=== PATIENT | male | born 1965 | race Caucasian/White ===

== ENCOUNTER 2016-03-30 09:41 | Emergency (ER) | payer OTHER ==
[~2016-03-30] VITALS: Wt 83.0 kg
[~2016-03-30 09:41] MED LIST: OMEP40CA6 PO; ZANTAC
[2016-03-30] MEDS ORDERED: ONDANSETRON 4 MG INJ IV STA (10:53)
[2016-03-30] MEDS ORDERED: SOD CHLORIDE 0.9% 1,000 ML IV STA (10:53)
[2016-03-30] MEDS ORDERED: PANT20TA3 PO (10:54)
[2016-03-30] MEDS ORDERED: GABA300C16 PO (10:55)
[2016-03-30] MEDS ORDERED: BUPR-187 PO (10:55)
[2016-03-30] MEDS ORDERED: DICYCLOMINE 20 MG INJ IM ONE (11:00)
[2016-03-30] MEDS ORDERED: OMEP20CA16 PO (11:26)
[2016-03-30] MEDS ORDERED: IMO2 PO (11:26)
[2016-03-30] MEDS ORDERED: RANI300T PO (11:28)
[2016-03-30] MEDS ORDERED: DICY10CA60 PO ×2 (11:28→12:03)
--- NOTE | 2016-03-30 11:32 | RADRPT ---
PROCEDURE: CT Abdomen and Pelvis without contrast. CLINICAL INDICATION: Abdominal pain TECHNIQUE: CT scan of the abdomen and pelvis was performed on a multidetector high-resolution CT s canner without intravenous contrast. Coronal and sagittal reformatted images were obtained from the axial source images. Images were reviewed on a high-resolution PACS workstation. The total exam CTD I equals 13mGy and the total exam DLP equals 788mGy-cm. COMPARISON: None. FINDINGS: Evaluation of the solid organs is limited given the lack of intravenous contrast administration. The lung bases are clear. The liver, pancreas, spleen, and adrenals are grossly unremarkable. No focal pericholecystic inflammatory changes. No hydronephrosis. No renal or ureteral stone. No bowel obstruction. Normal-caliber appendix. Mild diffuse colonic wall thickening with mural str atification of the bowel wall. No rim enhancing fluid collection. No significant retroperitoneal lymphadenopathy, ascites or evidence of pneumoperitoneum. IMPRESSION: Mild diffuse colonic wall thickening with mural stratification of the bowel wall is nonspecific but can be seen with a chronic colitis. Possible underlying etiologies would include infection or inflam mation. No evidence of an intra-abdominal abscess or bowel obstruction. No renal or ureteral stone. Normal-caliber appendix. RPTAT: AA .Prince Kendall MD, Date Time Electronically viewed and signed by .Prince Kendall MD, MD on 03/30/2016 11:31 .T/
[2016-03-30 11:36] LABS: BASOPHILS % 0.8 % (0.0-2.0); EOSINOPHILS # 0.2 10^3/ul (0.0-0.5); EOSINOPHILS % 3.7 % (0.0-7.0); HEMATOCRIT 46.1 % (42.0-52.0); HEMOGLOBIN 15.7 g/dl (14.0-18.0); LYMPHOCYTES # 1.5 10^3/ul (0.8-2.9); LYMPHOCYTES % 31.5 % (15.0-51.0); MEAN CORPUSCULAR HEMOGLOBIN 28.7 pg (29.0-33.0); MEAN CORPUSCULAR VOLUME 84.6 fl (82.0-101.0); MEAN PLATELET VOLUME 7.7 fl (7.4-10.4); MONOCYTE # 0.4 10^3/ul (0.3-0.9); MONOCYTES % 8.5 % (0.0-11.0); NEUTROPHIL # 2.7 10^3/ul (1.6-7.5); NEUTROPHILS % 55.5 % (39.0-77.0); PLATELET COUNT 255 10^3/UL (140-440); RED BLOOD COUNT 5.45 10^6/ul (4.70-6.10); RED CELL DISTRIBUTION WIDTH 13.6 % (11.5-14.5); UNCORRECTED WBC 4.9 10^3/ul (4.8-10.8); WHITE BLOOD COUNT 4.9 10^3/ul (4.8-10.8)
[2016-03-30 11:38] LABS: CONDITION 1
[2016-03-30 11:48] LABS: POTASSIUM 3.8 mmol/L (3.5-5.1)
[2016-03-30 11:51] LABS: CREATININE 0.87 mg/dl (0.61-1.24)
[2016-03-30 11:52] LABS: CALCIUM 9.4 mg/dl (8.4-10.2)
--- NOTE | 2016-03-30 12:14 | ERD ---
ER Documentation Chief Complaint Date/Time DATE: 03/30/16 TIME: 12:12 Chief Complaint ABD PAIN, DIARRHEA, ONSET 3 DAYS, NO N/V HPI 51-year-old male. [employer] use. The patient describes 1 month of diffuse abdominal cramping with loose watery stools. The patient is trying over-the- counter diarrhea medications. No recent travel, sick contacts, antibiotics. The patient was seen by his primary care physician who stated that this is viral. It appears the patient has had a colonoscopy within the past year. It also appears that the patient had stool studies but they do not have the results. He denies any fevers, no chest pain, no vomiting. ROS All systems reviewed and are negative except as per history of present illness. Medications Home Meds Active Scripts Dicyclomine Hcl* (Bentyl*) 10 Mg Capsule, 10 MG PO QID Y for abdominal cramping , #30 CAP Prov:CORTEZ CORTES MD 03/30/16 Reported Medications Ranitidine Hcl* (Ranitidine Hcl*) 300 Mg Tablet, 300 MG PO HS, #30 TAB 03/30/16 Dicyclomine Hcl* (Bentyl*) 10 Mg Capsule, 10 MG PO QID, CAP 03/30/16 Omeprazole* (Omeprazole*) 20 Mg Capsule.dr, 20 MG PO DAILY, #30 CAP 03/30/16 Loperamide Hcl* (Loperamide Hcl*) 2 Mg Cap, 2 MG PO DAILY Y for DIARRHEA, CAP 03/30/16 Discontinued Reported Medications Bupropion Hcl* (Wellbutrin SR*) 100 Mg Tablet.sa, 100 MG PO BID, TAB.SA 03/30/16 Gabapentin* (Gabapentin*) 300 Mg Capsule, 300 MG PO TID, #90 CAP 03/30/16 Pantoprazole* (Pantoprazole*) 20 Mg Tablet.dr, 20 MG PO AC BREAKFAST, TAB 03/30/16 [Zantac] No Conflict Check 06/04/15 Omeprazole* (Omeprazole*) 40 Mg Capsule.dr, 40 MG PO DAILY, CAP 12/19/13 Allergies Allergies: Uncoded Allergies: POLLEN (Allergy, Unknown, 12/19/13) PMhx/Soc History of Surgery: Yes (EYE SX) Anesthesia Reaction: No Hx Neurological Disorder: No Hx Respiratory Disorders: No Hx Cardiac Disorders: No Hx Psychiatric Problems: No Hx Miscellaneous Medical Probl: No Hx Alcohol Use: No Hx Substance Use: No Hx Tobacco Use: No Smoking Status: Never smoker FmHx Family History: No diabetes Physical Exam Vitals Vital Signs Date Time Temp Pulse Resp B/P Pulse Ox O2 Delivery O2 Flow Rate FiO2 03/30/16 09:46 96.4 68 17 144/96 99 Physical Exam General: Well developed, well nourished, no acute distress Head: Normocephalic, atraumatic. Eyes: Pupils equally reactive, EOM intact ENT: Moist mucous membranes Neck: Supple, no lymphadenopathy Respiratory: Lungs clear bilaterally, no distress Cardiovascular: RRR, no murmurs, rubs, or gallops Abdominal: Soft, non-tender, non-distended, no peritoneal signs : Deferred MSK: No edema, no unilateral swelling, 5/5 strength Neurologic: Alert and oriented, moving all extremities, normal speech, no focal weakness, no cerebellar signs Skin: No rash Psych: Normal mood Result Diagram: 03/30/16 1100 03/30/16 1100 Results 24 hrs Laboratory Tests Test 03/30/16 11:00 Anion Gap 17 Basophils # 0.010^3/ul Basophils % 0.8% Blood Morphology Comment Blood Urea Nitrogen 23mg/dl Calcium Level 9.4mg/dl Carbon Dioxide Level 29mmol/L Chloride Level 104mmol/L Creatinine 0.87mg/dl Eosinophils # 0.210^3/ul Eosinophils % 3.7% Glucose Level 96mg/dl Hematocrit 46.1% Hemoglobin 15.7g/dl Lymphocytes # 1.510^3/ul Lymphocytes % 31.5% Mean Corpuscular Hemoglobin 28.7pg Mean Corpuscular Hemoglobin Concent 34.0g/dl Mean Corpuscular Volume 84.6fl Mean Platelet Volume 7.7fl Monocytes # 0.410^3/ul Monocytes % 8.5% Neutrophils # 2.710^3/ul Neutrophils % 55.5% Nucleated Red Blood Cells # 0.010^3/ul Nucleated Red Blood Cells % 0.0/100WBC Platelet Count 02999^3/UL Potassium Level 3.8mmol/L Red Blood Count 5.4510^6/ul Red Cell Distribution Width 13.6% Sodium Level 146mmol/L White Blood Count 4.910^3/ul Current Medications Medications (Trade) Dose Ordered Sig/Dk Route PRN Reason Start Time Stop Time Status Last Admin Dose Admin Sodium Chloride (NS) 1,000 ml @ 1,000 mls/hr Q1H STAT IV 03/30/16 10:53 03/30/16 11:52 DC 03/30/16 11:43 Ondansetron HCl (Zofran Inj) 4 mg ONCE STAT IV 03/30/16 10:53 03/30/16 10:54 DC 03/30/16 11:43 Dicyclomine HCl (Bentyl) 10 mg ONCE ONCE IM 03/30/16 11:00 03/30/16 11:01 DC Procedures/MDM EKG, MONITORS, & DIAGNOSTIC IMAGING: CT abdomen and pelvis IMPRESSION: Mild diffuse colonic wall thickening with mural stratification of the bowel wall is nonspecific but can be seen with a chronic colitis. Possible underlying etiologies would include infection or inflammation. No evidence of an intra- abdominal abscess or bowel obstruction. No renal or ureteral stone. Normal-caliber appendix. RPTAT: AA LAB INTERPRETATION: No leukocytosis, no dehydration MEDICAL DECISION MAKING: The patient presents with 1 month of diarrhea. The patient has a benign abdominal exam. Given his age and the chronic diarrhea believe CT imaging would be appropriate. The patient does not have fever he does not have renal failure he does not have leukocytosis. This is not consistent with hemorrhagic E. coli or HUS. ER COURSE: The patient is otherwise well-appearing and well-hydrated. Bentyl was provided. The patient was given IV fluids. His laboratory testing does not suggest dehydration. CT imaging shows evidence of possible chronic colitis. I feel that giving antibiotics in the setting is only going to complicate the situation. The patient has stool studies by his primary care physician and was advised to follow-up with primary care doctor and possibly see a GI specialist. The patient will be discharged home with a strong recommendation of follow-up with primary care physician within the week. I kept the patient and/or family informed of laboratory and diagnostic imaging results throughout the emergency room course. DISPOSITION PLAN: We discussed follow up with the patient's primary care doctor within 24 to 48 hours as needed. We also discussed return to the emergency room for worsening symptoms or worsening condition. Discharge Medications: Bentyl Departure Diagnosis: Primary Impression: Diarrhea Diarrhea type: unspecified type Qualified Code: R19.7 - Diarrhea, unspecified type Condition: Stable Patient Instructions: Treating Diarrhea Additional Instructions: Llame al doctor nombrado abajo (Referral Sources) MAANA y diya alonso DREW PARA DENTRO DE ALONSO SEMANA. Dgale a la secretaria que nosotros le instruimos hacer esta drew.Avise o llame si alexandre condicin se empeora antes de la drew. CORTEZ CORTES MD Mar 30, 2016 12:14
== END 2016-03-30 12:03 | disposition home or self-care (01) ==
LOC: E/R 09:41
DX: R19.7 Diarrhea, unspecified (principal)
CPT/HCPCS: 36415; 74176; 80048; 85025; 96372; 96374; 99285; J0500; J2405; J7030

== ENCOUNTER 2017-03-01 10:08 | Day surgery (SDC) | payer OTHER, MEDICAID ==
--- NOTE | 2017-02-28 18:11 | PREOPHP ---
DATE OF ADMISSION: 03/01/2017 CHIEF COMPLAINT: "I'm having a growth over my right eye again." HISTORY OF PRESENT ILLNESS: This is an almost 51-year-old gentleman who is having a pterygium regro wing on the right side. He has had multiple operations to remove this pterygium, but unfortunately it has been persistent and it has grown into the cornea again getting close to the visual axis. It is more red and inflamed and causes irritation. He requests to have surgery in order to improve thi s condition. PAST MEDICAL HISTORY: Significant for peptic ulcer disease. MEDICATIONS: Include: 1. Xanax. 2. Ranitidine. PAST SURGICAL HISTORY: Significant for the pterygium removal in 2013, and I believe he had had one earlier than that. FAMILY HISTORY: Negative. SOCIAL HISTORY: Denies alcohol or tobacco use. REVIEW OF SYSTEMS: He denies having any fever, chills, nausea, vomiting, diarrhea, constipation, sh ortness of breath, dyspnea. PHYSICAL EXAMINATION: VITAL SIGNS: Heart rate of 76, respirations 18, blood pressure 124/75. Weight is 178 pounds. GENERAL: He is a well-developed, well-nourished gentleman in no acute distress. HEENT: Head normocephalic, atraumatic. Ears, nose and throat: Normal limits. Eyes: Best correct visual acuity is 20/40 on the right, 20/25 in the left. Pupil exam is 4 mm, 2+ reactive. No appar ent afferent pupillary defect. Extraocular muscles are intact. External examination and slit lamp examination shows a pterygium of the right side. The intraocular pressure is 19. Funduscopic exam shows essentially normal macula, disk, vessels and cup to disk. NECK: No lymphadenopathy, normal thyroid. LUNGS: Lungs clear to auscultation and percussion. HEART: Regular rate and rhythm. ABDOMEN: Soft, nontender, nondistended. Positive bowel sounds. EXTREMITIES: No cyanosis, clubbing or edema. NEUROLOGIC: Grossly intact. POSTOPERATIVE DIAGNOSIS: Pterygium of the right eye. RECOMMENDATION: Risks, complications and alternatives were explained to the patient which includes infection, bleeding, loss of vision, loss of the eye, or anesthesia, need for second surgery, retinal detachment, irregular pupil vertical corneal ptosis, globe perforation and diplopia and of c ourse recurrence. DESCRIPTION OF PROCEDURE: Patient requests surgery to improve his condition. He is scheduled to curiel ve a pterygium removal with autograft done on Wednesday. Dictated By: BRITTNEY SHEPHERD/ALICJA Conf#: [id number] DID#: [id number]
[~2017-03-01] VITALS: Ht 167.6 cm; Wt 78.7 kg
[2017-03-01] VITALS (8 sets, daily range): BP systolic 104–141; BP diastolic 74–92; PULSE 64–88; RESP 13–20; Ht 167.6 cm; Wt 78.7 kg
[~2017-03-01 10:08] MED LIST changes: +DICY10CA60 PO; +IMO2 PO; +OMEP20CA16 PO; -OMEP40CA6 PO; +RANI300T PO; -ZANTAC
[2017-03-01] MEDS ORDERED: MITOMYCIN OP ONE (12:00)
[2017-03-01] MEDS ORDERED: LIDOCAINE OPER ONE (12:00)
[2017-03-01] MEDS ORDERED: [UNRECOGNIZED DRUG - OTHER] OPER SCH (12:00)
[2017-03-01] MEDS ORDERED: CIPROFLOXACIN 0.3% OPER SCH (12:00)
[2017-03-01] MEDS ORDERED: MIDAZOLAM 1 MG/ML 2 ML INJ ONE (12:43)
[2017-03-01] MEDS ORDERED: LIDOCAINE 1%/EPI 30 ML INJ ONE (12:47)
[2017-03-01] MEDS ORDERED: TETRACAINE 0.5% 4 ML OPH ONE (12:47)
[2017-03-01] MEDS ORDERED: OXYCODONE/ACETAMINOPHEN (5/325) TAB PO PRN (13:00)
[2017-03-01] MEDS ORDERED: BALANCED SALT SOLN 15 ML OPH IRRIG ONE (13:00)
[2017-03-01] MEDS ORDERED: ONDANSETRON 4 MG INJ IV PRN (13:00)
[2017-03-01] MEDS ORDERED: LIDOCAINE 2%/EPI (MDV) 20ML INJ INJ ONE (13:00)
[2017-03-01] MEDS ORDERED: TETRACAINE 0.5% 4 ML OPH RIGHT EYE ONE (13:00)
[2017-03-01] MEDS ORDERED: HYDROmorphONE (0.2 MG/ML) 10ML SYG IV PRN ×3 (13:00)
[2017-03-01] MEDS ORDERED: TOBRAMYCIN/DEXAMETH 3.5 GM OPH OINT ONE (13:16)
[2017-03-01] MEDS ORDERED: TOBRAMYCIN/DEXAMETH 3.5 GM OPH OINT RIGHT EYE ONE (13:24)
[2017-03-01] MEDS ORDERED: ACETAMINOPHEN 1000MG/100ML IV 100 ML ONE (13:47)
--- NOTE | 2017-03-01 14:00 | SIPON ---
Date/Time of Note Date/Time of Note DATE: 03/01/17 TIME: 13:54 Operative Report Preoperative Diagnosis Recurrent ptrygium Postoperative Diagnosis same Operation/Procedure Performed Perygium removal with graft and mitomysin right eye Surgeon Brittney Arriola MD assistant analyst none Anesthesia: MAC Estimated blood loss: minimal Transfusion Required none Specimen none Grafts/Implants none Complications none BRITTNEY ARRIOLA MD Mar 01, 2017 14:00
--- NOTE | 2017-03-02 06:08 | OPR ---
DATE OF OPERATION: 03/01/2017 PREOPERATIVE DIAGNOSIS: Recurrent pterygium of the right eye. POSTOPERATIVE DIAGNOSIS: Recurrent pterygium of the right eye. SURGEON: Nuno Khan MD. RELIEF CAPTAIN: None. ANESTHESIOLOGIST: . PROCEDURE: Pterygium removal with autograft and mitomycin, right eye. COMPLICATIONS: None. ESTIMATED BLOOD LOSS: Less than 1 mL. ANESTHESIA: 2% lidocaine with 1:100,000 epinephrine. COMPLICATIONS: None. INDICATIONS: This is a 51-year-old gentleman who has had pterygium removal in the past; however, it has regrown again and it is very inflamed and it is getting very close to the central vision, visua l axis. He requested surgery to improve this condition. DESCRIPTION OF PROCEDURE: The patient was taken to the operating room in stable condition and was p laced on the heart and lung monitors and monitored throughout the whole case. After the patient was draped and prepped, the wire lid speculum was placed into the center of the conjunctival fornices a nd the pterygium was lifted off the cornea using a 69 [place] blade. This was extended all the way t o where the scar tissue had started and this portion was removed. Next, mitomycin was placed on to the sclera for about 1 minute the concentration was 0.03 and there were no complications. Next, the eye was irrigated with the balanced salt solution, enough to remove dilute mitomycin. Next, the ar ea of the bare sclera was measured to be about 8 x 6 mm and the same area was measured supranasal co njunctiva and the area was marked and then it was removed. Using a 9-0 needle, the graft was attached to the surrounding conjunctiva and then a aguilar bur was used to smooth out the cornea. N ext, the wire lid speculum was removed. Maxitrol and Tobradex ointment was placed onto the eye rena g with the lidocaine jelly and the patient was patched and a shield was placed over the right eye. The patient was taken to the recovery room in stable condition. There were no complications. Dictated By: NUNO SHEPHERD/ALICJA Conf#: [id number] DID#: [id number]
== END 2017-03-01 16:00 | disposition home or self-care (01) ==
LOC: SDS 10:08
PROVIDERS: ATTEND Ophthalmology
DX: H11.061 Recurrent pterygium of right eye (principal)
CPT/HCPCS: 65426; J0131; J2250; J9280